=== PATIENT | female | born 1935 | race Caucasian/White ===

== ENCOUNTER 2018-12-02 10:56 | Emergency (ER) | payer MEDICARE, BC ==
[~2018-12-02] VITALS: Ht 154.9 cm; Wt 46.8 kg
[~2018-12-02 10:56] MED LIST: ASPI81TA52 PO; CARV-50 PO; CLOP75TA35 PO; DOCU-28 PO; GLIM1TAB46 PO; LEVO50TA67 PO; LISI-222 PO; METF500T PO; ZOC40T PO
[2018-12-02 11:49] LABS: BASOPHILS # (AUTO) 0.1 X10'3 (0-0.2); BASOPHILS % (AUTO) 0.8 % (0-1); EOSINOPHILS # (AUTO) 0.1 X10'3 (0-0.9); EOSINOPHILS % (AUTO) 1.6 % (0-6); HEMATOCRIT 40.2 % (35.0-45.0); HEMOGLOBIN 13.5 g/dl (12.0-16.0); LYMPHOCYTES # (AUTO) 1.7 X10'3 (1.1-4.8); LYMPHOCYTES % (AUTO) 25.9 % (21-51); MEAN CORPUSCULAR HEMOGLOBIN 30.9 PG (27.0-31.0); MEAN CORPUSCULAR HGB CONC 33.6 g/dL (33.0-36.5); MEAN CORPUSCULAR VOLUME 91.8 FL (78-98); MEAN PLATELET VOLUME 10.2 FL (7.4-10.4); MONOCYTES # (AUTO) 0.5 X10'3 (0-0.9); MONOCYTES % (AUTO) 8.3 % (2-12); NEUTROPHILS % (AUTO) 63.4 % (42-75); PLATELET COUNT 179 X10'3 (140-440); RED BLOOD COUNT 4.39 X10'6 (4.20-5.60); WHITE BLOOD COUNT 6.4 X10'3 (4.5-11.0)
[2018-12-02 12:03] LABS: ALANINE AMINOTRANSFERASE 28 U/L (12-78); ALBUMIN 3.7 G/DL (3.4-5.0); ALKALINE PHOSPHATASE 60 IU/L (46-116); ANION GAP 10 (8-16); ASPARTATE AMINO TRANSFERASE 16 U/L (10-37); BILIRUBIN,TOTAL 0.5 MG/DL (0.1-1.0); BLOOD UREA NITROGEN 17 MG/DL (7-18); BUN/CREATININE RATIO 18.9 (6.6-38.0); CALCIUM 9.9 MG/DL (8.5-10.1); CHLORIDE 101 MMOL/L (99-107); GLUCOSE 221 MG/DL (70-104); POTASSIUM 3.6 MMOL/L (3.5-5.1); SODIUM 141 MMOL/L (135-145); TOTAL CARBON DIOXIDE 30.2 MMOL/L (24-32); TOTAL PROTEIN 7.3 G/DL (6.4-8.2); eGFR 60 ML/MIN
[2018-12-02] MEDS ORDERED: normal saline 1000ML IV soln IVB ONE (12:15)
[2018-12-02 12:36] VITALS: BP 166/75
== END 2018-12-02 13:18 | disposition home or self-care (01) ==
LOC: ER 10:56
DX: I95.1 Orthostatic hypotension (principal); R42 Dizziness and giddiness; E11.9 Type 2 diabetes mellitus without complications; I10 Essential (primary) hypertension; Z98.890 Other specified postprocedural states; Z79.82 Long term (current) use of aspirin; Z79.899 Other long term (current) drug therapy
CPT/HCPCS: 36415; 80053; 85025; 93005; 99284; J7030

== ENCOUNTER 2019-08-13 06:58 | Day surgery (SDC) | payer MEDICARE, BC ==
[2019-08-12 12:37] LABS: HEMOGLOBIN 11.8 g/dl (12.0-16.0); MEAN CORPUSCULAR HGB CONC 33.5 g/dL (33.0-36.5); MEAN PLATELET VOLUME 9.7 FL (7.4-10.4); WHITE BLOOD COUNT 4.7 X10'3 (4.5-11.0)
[2019-08-12 12:39] LABS: BASOPHILS % (AUTO) 0.5 % (0-1); EOSINOPHILS # (AUTO) 0.1 X10'3 (0-0.9); EOSINOPHILS % (AUTO) 1.6 % (0-6); HEMATOCRIT 35.2 % (35.0-45.0); LYMPHOCYTES # (AUTO) 0.9 X10'3 (1.1-4.8); LYMPHOCYTES % (AUTO) 19.5 % (21-51); MEAN CORPUSCULAR HEMOGLOBIN 32.8 PG (27.0-31.0); MONOCYTES # (AUTO) 0.5 X10'3 (0-0.9); NEUTROPHILS # (AUTO) 3.2 X10'3 (1.8-7.7); NEUTROPHILS % (AUTO) 67.4 % (42-75); PLATELET COUNT 191 X10'3 (140-440); RED CELL DISTRIBUTION WIDTH 13.6 % (11.5-14.5)
[2019-08-12 12:46] LABS: ALBUMIN 3.6 G/DL (3.4-5.0); ANION GAP 9 (8-16); BLOOD UREA NITROGEN 18 MG/DL (7-18); BUN/CREATININE RATIO 16.7 (6.6-38.0); CALCIUM 9.6 MG/DL (8.5-10.1); CHLORIDE 104 MMOL/L (99-107); CREATININE 1.08 MG/DL (0.40-0.90); GLUCOSE 292 MG/DL (70-104); SODIUM 142 MMOL/L (135-145); TOTAL CARBON DIOXIDE 28.8 MMOL/L (24-32); eGFR 48 ML/MIN
[2019-08-12 12:51] LABS: PARTIAL THROMBOPLASTIN TIME 27 SECONDS (22-32)
[2019-08-13] VITALS (13 sets, daily range): BP systolic 132–178; BP diastolic 52–80
[~2019-08-13] VITALS: Ht 152.4 cm; Wt 51.2 kg
[~2019-08-13 06:58] MED LIST changes: +GLIM1TAB3 PO; -GLIM1TAB46 PO
[2019-08-13] MEDS ORDERED: LORazepam 0.5 MG tablet PO PRN (07:15)
[2019-08-13] MEDS ORDERED: acetylcysteine 200 MG/ml 4ml vial PO PRN (07:15)
[2019-08-13] MEDS ORDERED: diphenhydrAMINE 25mg capsule PO PRN (07:15)
[2019-08-13] MEDS ORDERED: normal saline 1,000 ML IV SCH (07:15)
[2019-08-13] MEDS ORDERED: DAPA10TA PO (07:54)
[2019-08-13] MEDS ORDERED: LOSA1TAB41 PO (07:54)
[2019-08-13] MEDS ORDERED: PIOG15TA8 PO (07:54)
[2019-08-13 08:07] LABS: ALBUMIN 3.4 G/DL (3.4-5.0); ANION GAP 10 (8-16); BLOOD UREA NITROGEN 16 MG/DL (7-18); BUN/CREATININE RATIO 17.2 (6.6-38.0); CALCIUM 9.1 MG/DL (8.5-10.1); CHLORIDE 105 MMOL/L (99-107); CREATININE 0.93 MG/DL (0.40-0.90); GLUCOSE 159 MG/DL (70-104); POTASSIUM 3.7 MMOL/L (3.5-5.1); SODIUM 143 MMOL/L (135-145); TOTAL CARBON DIOXIDE 28.3 MMOL/L (24-32); eGFR 57 ML/MIN
[2019-08-13] MEDS ORDERED: iohexol 350 MG/ML 50ML vial IV ONE (08:50)
[2019-08-13] MEDS ORDERED: fentaNYL/PF 50MCG/1 ML 2ML syringe ONE (08:50)
[2019-08-13] MEDS ORDERED: heparin 1,000unit/ml 10ml vial 10 ML ONE (08:50)
[2019-08-13] MEDS ORDERED: midazolam 2 mg/2 ml injection ONE (08:50)
[2019-08-13] MEDS ORDERED: LIDOcaine 1% (10mg/ml)w/preservative injection 20ml MDV ONE (08:50)
[2019-08-13] MEDS ORDERED: nitroGLYCERIN-Tridil 50MG/D5W 250 ML IV ONE (08:51)
[2019-08-13] MEDS ORDERED: iohexol 350MG/ML 100ml bottle IV ONE (08:51)
--- NOTE | 2019-08-13 17:05 | NUR ---
pt put in a 45 degree angle sitting position, pt denies pain, pt sarag is CD&I. pt eating peaches and jello. will continue to monitor.
== END 2019-08-13 18:00 | disposition home or self-care (01) ==
LOC: SSTAY O 06:58
PROVIDERS: ATTEND Internal Medicine Cardiovascular Disease
DX: R94.39 Abnormal result of other cardiovascular function study (principal); I25.10 Atherosclerotic heart disease of native coronary artery without angina pectoris; I10 Essential (primary) hypertension; E78.5 Hyperlipidemia, unspecified; Z95.5 Presence of coronary angioplasty implant and graft; Z95.810 Presence of automatic (implantable) cardiac defibrillator; Z79.899 Other long term (current) drug therapy; Z79.01 Long term (current) use of anticoagulants
CPT/HCPCS: 36415; 80048; 82948; 85025; 85610; 85730; 93005; 93458; 99152; 99153; C1760; C1769; J1644; J2001; J2250; J3010; J7030; Q0163; Q9967; A4620; A6258; J3490

== ENCOUNTER 2020-10-03 13:58 | Emergency (ER) | payer MEDICARE, BC ==
[~2020-10-03] VITALS: Ht 152.4 cm; Wt 113.0 kg
[~2020-10-03 13:58] MED LIST changes: +CLOP75TA34 PO; -CLOP75TA35 PO; -DOCU-28 PO; -GLIM1TAB3 PO; +LEVO100T9 PO; -LISI-222 PO; +LOSA1TAB41 PO
[2020-10-03] MEDS ORDERED: normal saline 1000ml 1,000 ML IV ONE (14:30)
[2020-10-03] MEDS ORDERED: normal saline 1000ML IV soln IVB ONE (14:30)
[2020-10-03 14:49] LABS: BASOPHILS # (AUTO) 0.1 X10'3 (0-0.2); BASOPHILS % (AUTO) 1.2 % (0-1); EOSINOPHILS # (AUTO) 0.1 X10'3 (0-0.9); EOSINOPHILS % (AUTO) 1.3 % (0-6); HEMATOCRIT 38.9 % (35.0-45.0); HEMOGLOBIN 12.9 g/dl (12.0-16.0); LYMPHOCYTES # (AUTO) 1.1 X10'3 (1.1-4.8); MEAN CORPUSCULAR HEMOGLOBIN 32.8 PG (27.0-31.0); MEAN CORPUSCULAR HGB CONC 33.1 g/dL (33.0-36.5); MEAN CORPUSCULAR VOLUME 99.2 FL (78-98); MEAN PLATELET VOLUME 10.8 FL (7.4-10.4); MONOCYTES # (AUTO) 0.8 X10'3 (0-0.9); MONOCYTES % (AUTO) 10.1 % (2-12); NEUTROPHILS # (AUTO) 5.4 X10'3 (1.8-7.7); NEUTROPHILS % (AUTO) 72.4 % (42-75); PLATELET COUNT 216 X10'3 (140-440); RED BLOOD COUNT 3.92 X10'6 (4.20-5.60); RED CELL DISTRIBUTION WIDTH 14.4 % (11.5-14.5); WHITE BLOOD COUNT 7.5 X10'3 (4.5-11.0)
[2020-10-03 14:56] LABS: ALANINE AMINOTRANSFERASE 50 U/L (12-78); ALBUMIN 3.8 G/DL (3.4-5.0); ALBUMIN/GLOBULIN RATIO 1.1 (1.1-1.5); ALKALINE PHOSPHATASE 78 IU/L (46-116); ANION GAP 9 (8-16); ASPARTATE AMINO TRANSFERASE 26 U/L (10-37); BILIRUBIN,TOTAL 0.6 MG/DL (0.1-1.0); BLOOD UREA NITROGEN 53 MG/DL (7-18); CHLORIDE 102 MMOL/L (99-107); CREATININE 1.96 MG/DL (0.40-0.90); GLUCOSE 112 MG/DL (70-104); SODIUM 137 MMOL/L (135-145); TOTAL CARBON DIOXIDE 25.8 MMOL/L (24-32); TOTAL PROTEIN 7.3 G/DL (6.4-8.2); eGFR 24 ML/MIN
[2020-10-03 14:59] LABS: MAGNESIUM 2.1 MG/DL (1.5-2.4)
[2020-10-03 15:22] LABS: LARGE PLATELETS FEW; PLATELET ESTIMATE NORMAL
[2020-10-03 15:23] LABS: ELLIPTOCYTES FEW; POLYCHROMASIA FEW
[2020-10-03 15:30] VITALS: BP 129/64
--- NOTE | 2020-10-03 15:57 | NUR ---
Pt received fluids and feeling better. Pt able to stand at bedside without assistance. Pt states she got a great nap.
--- NOTE | 2020-10-03 18:25 | NUR ---
per Dr. Mccarthy request I called in RX to [facility] in [place] lasix po 20mg daily and klorcon 10meq PO daily
== END 2020-10-03 16:00 | disposition home or self-care (01) ==
LOC: ER 13:59
DX: E86.0 Dehydration (principal); R41.82 Altered mental status, unspecified; I25.10 Atherosclerotic heart disease of native coronary artery without angina pectoris; I10 Essential (primary) hypertension; E11.9 Type 2 diabetes mellitus without complications; E03.9 Hypothyroidism, unspecified; Z98.61 Coronary angioplasty status; Z95.1 Presence of aortocoronary bypass graft; Z95.0 Presence of cardiac pacemaker; Z79.82 Long term (current) use of aspirin; Z79.899 Other long term (current) drug therapy
CPT/HCPCS: 36415; 70450; 80053; 83735; 84484; 85008; 85025; 93005; 96360; 99285; J7030

== ENCOUNTER 2022-06-16 10:49 | Day surgery (SDC) | payer MEDICARE, BC ==
[2022-06-09 15:30] LABS: BASOPHILS % (AUTO) 0.7 % (0-1); EOSINOPHILS # (AUTO) 0.1 X10'3 (0-0.9); LYMPHOCYTES # (AUTO) 1.3 X10'3 (1.1-4.8); LYMPHOCYTES % (AUTO) 24.8 % (21-51); MEAN CORPUSCULAR HEMOGLOBIN 32.1 PG (27.0-31.0); MEAN CORPUSCULAR HGB CONC 33.7 g/dL (33.0-36.5); MEAN CORPUSCULAR VOLUME 95.2 FL (78-98); MEAN PLATELET VOLUME 10.3 FL (7.4-10.4); MONOCYTES # (AUTO) 0.7 X10'3 (0-0.9); MONOCYTES % (AUTO) 12.7 % (2-12); NEUTROPHILS # (AUTO) 3.3 X10'3 (1.8-7.7); NEUTROPHILS % (AUTO) 60.8 % (42-75); PRE OP HEMATOCRIT 34.9 % (35.0-45.0); PRE OP HEMOGLOBIN 11.8 g/dL (12.0-16.0); PRE OP PLATELET COUNT 171 X10'3 (140-440); RED BLOOD COUNT 3.67 X10'6 (4.20-5.60)
[2022-06-09 15:47] LABS: ALBUMIN/GLOBULIN RATIO 1.1 (1.1-1.5); ALKALINE PHOSPHATASE 73 IU/L (46-116); BLOOD UREA NITROGEN 16 MG/DL (7-18); BUN/CREATININE RATIO 15.4 (6.6-38.0); CALCIUM 9.7 MG/DL (8.5-10.1); CHLORIDE 104 MMOL/L (99-107); CREATININE 1.04 MG/DL (0.40-0.90); PRE OP ALT 31 U/L (30-65); PRE OP ANION GAP 9 (8-16); PRE OP AST 26 U/L (10-37); PRE OP BILIRUB, TOTAL 0.5 MG/DL (0.0-1.0); PRE OP POTASSIUM 4.6 MMOL/L (3.4-5.1); PRE OP SODIUM 143 MMOL/L (135-145); TOTAL CARBON DIOXIDE 30.5 MMOL/L (24-32); TOTAL PROTEIN 7.7 G/DL (6.4-8.2); eGFR 50 ML/MIN
[2022-06-09 15:51] LABS: PRE OP GLUCOSE 212 MG/DL (70-104)
[~2022-06-16] VITALS: Ht 154.9 cm; Wt 45.0 kg
[~2022-06-16 10:49] MED LIST changes: -CLOP75TA34 PO; +DOCUMENT DATE & TIME OF BETA-BLOCKER PO ONE; -LEVO50TA67 PO; +LOSA100T57 PO; -LOSA1TAB41 PO; +MULT-1085 PO; +ceFAZolin inj. 2,000 MG in dextrose 5%-water 100 ML IV ONE; +famotidine 20mg tablet PO ONE; +ringers solution, lacted 1,000 ML IV SCH
[2022-06-16 12:50] VITALS: BP 161/70
[2022-06-16 12:51] VITALS: BP 161/70
[2022-06-16] MEDS ORDERED: BUPIVAcaine/PF 2.5mg/ml (0.25%) 10ml vial ONE (13:58)
[2022-06-16] MEDS ORDERED: fentaNYL/PF 50MCG/1 ML 2ML syringe ONE (14:11)
[2022-06-16] MEDS ORDERED: midazolam 1 mg/ML 2ml injection ONE (14:12)
[2022-06-16] MEDS ORDERED: LIDOcaine 0.5% (5mg/ml) 50ml vial ONE (14:12)
[2022-06-16 14:47] VITALS: BP 156/71
--- NOTE | 2022-06-16 14:47 | NUR ---
Received from OR via , accompanied by Anesthesiologist MELISSA and report given by Anesthesiolgist. PT ALERT UPON ARRIVAL DENIES PAIN OR DISCOMFORT. RT SIDE CARPAL SURGERY. ON ROOM AIR. Addendum: 06/16/22 at 1501 by Edie Kang RN Amended: Links added.
[2022-06-16 14:50] VITALS: BP 143/64
[2022-06-16] MEDS ORDERED: morphine 4 MG/ML inj SYRINge IV PRN (14:50)
[2022-06-16] MEDS ORDERED: ringers solution, lacted 1,000 ML IV SCH (14:50)
[2022-06-16] MEDS ORDERED: ondansetron/PF 4mg/2ml inj IV PRN (14:50)
[2022-06-16] MEDS ORDERED: meperidine/PF 25mg/ml syringe IV PRN ×3 (14:50)
[2022-06-16] MEDS ORDERED: proCHLORperazine 10 MG/2 ml inj IV PRN (14:50)
[2022-06-16] MEDS ORDERED: morphine 2 MG/ML inj. syringe IV PRN (14:50)
[2022-06-16 15:00] VITALS: BP 144/62
[2022-06-16 15:10] VITALS: BP 150/61
--- NOTE | 2022-06-16 15:37 | NUR ---
PT A/O X4. DENIES PAIN OR DISCOMFORT. TOLERATING LIQUIDS. ABLE TO TRANSFER TO WHEELCHAIR AND FROM CHAIR TO PRIVATE VEHICLE; STAFF APPLIED [employer]. DAUGHTER TRANSPORTED HOME. UNDERSTOOD DISCHARGE INSTRUCTIONS AND WILL CALL MD'S OFFICE IF QUESTIONS ARISE. Addendum: 06/16/22 at 1625 by Edie Kang RN Amended: Links added.
== END 2022-06-16 15:37 | disposition home or self-care (01) ==
LOC: PAS 10:49
PROVIDERS: ATTEND Orthopaedic Surgery Hand Surgery
DX: G56.01 Carpal tunnel syndrome, right upper limb (principal); I10 Essential (primary) hypertension; I25.2 Old myocardial infarction; E78.00 Pure hypercholesterolemia, unspecified; E03.9 Hypothyroidism, unspecified; E11.9 Type 2 diabetes mellitus without complications; E78.5 Hyperlipidemia, unspecified; Z79.899 Other long term (current) drug therapy; Z98.890 Other specified postprocedural states; Z90.710 Acquired absence of both cervix and uterus; Z98.49 Cataract extraction status, unspecified eye; Z96.643 Presence of artificial hip joint, bilateral; Z95.5 Presence of coronary angioplasty implant and graft
CPT/HCPCS: 36415; 64721; 80053; 82948; 85025; 87811; J0690; J2250; J3010; J3490; J7030; J7060; J7120; Z7506; Z7512; A4215